=== PATIENT | male | born 1970 | race Caucasian/White ===

== ENCOUNTER 2021-03-29 22:15 | Emergency (ER) | payer SELFPAY | END 2021-03-29 23:35 | disposition home or self-care (01) | LOC: FER 22:15 | DX: S43.004A Unspecified dislocation of right shoulder joint, initial encounter (principal); F17.210 Nicotine dependence, cigarettes, uncomplicated; X58.XXXA Exposure to other specified factors, initial encounter; Y93.89 Activity, other specified | CPT/HCPCS: 73030; 96374; 96375; J1170; J1885; J2405 ==

== ENCOUNTER 2021-04-03 15:15 | Emergency (ER) | payer OTHER ==
[2021-04-03] MEDS ORDERED: NAPROXEN500 MG PO (15:45)
== END 2021-04-03 15:50 | disposition home or self-care (01) ==
LOC: FER 15:15
DX: M25.511 Pain in right shoulder (principal); G89.29 Other chronic pain; F17.210 Nicotine dependence, cigarettes, uncomplicated
CPT/HCPCS: 73030; J1885

== ENCOUNTER 2021-04-07 19:17 | Emergency (ER) | payer OTHER ==
[~2021-04-07 19:17] MED LIST: NAPROXEN500 MG PO
== END 2021-04-07 20:20 | disposition home or self-care (01) ==
LOC: FER 19:17
DX: S43.004A Unspecified dislocation of right shoulder joint, initial encounter (principal); F17.210 Nicotine dependence, cigarettes, uncomplicated; Z98.890 Other specified postprocedural states; X50.0XXA Overexertion from strenuous movement or load, initial encounter; Y93.89 Activity, other specified; Y92.89 Other specified places as the place of occurrence of the external cause
CPT/HCPCS: 96372; J1170; J1885